=== PATIENT | female | born 1935 | race Caucasian/White ===

== ENCOUNTER 2017-02-23 12:52 | Inpatient (IN) | payer MEDICARE ==
[~2017-02-23] VITALS: Ht 167.6 cm; Wt 91.9 kg
--- OUTSIDE RECORDS SUMMARY | 2017-02-23 12:54 | External Medical Summary Rpt ---
Author Author JEANIE Sands, [employer] Organization [employer] Address Unknown Phone Unavailable Payers Section Payer Plan Name Group ID Member ID Coverage Coverage Start End Date Date MEDICARE MCARE [id number] No No A AND B A informati informati on in on in source source data data
--- OUTSIDE RECORDS SUMMARY | 2017-02-23 12:54 | External Medical Summary Rpt ---
Author Author JEANIE Address Unknown Phone [email or web address] Purpose Continuity of Care Document - through 2016
--- OUTSIDE RECORDS SUMMARY | 2017-02-23 12:54 | External Medical Summary Rpt ---
Author Author [employer] Organization [employer] Address Unknown Phone Unavailable Purpose Continuity of Care Document - through 2016
--- OUTSIDE RECORDS SUMMARY | 2017-02-23 12:54 | External Medical Summary Rpt ---
Author Author JEANIE Sands, [employer] Organization [employer] Address Unknown Phone Unavailable Payers Section Payer Plan Name Group ID Member ID Coverage Coverage Start End Date Date MEDICARE MCARE [id number] No No A AND B A informati informati on in on in source source data data
--- OUTSIDE RECORDS SUMMARY | 2017-02-23 12:54 | External Medical Summary Rpt ---
Demographics Preferred Language Romansh Marital Status Unknown Hindu Affiliation Unknown Race Unknown Ethnic Group Unknown Author Author , JEANIE WARE Address Unknown Phone Immunization Unable to retrieve immunization data due to connection failure with Immunization Registry. Please try again later.
--- OUTSIDE RECORDS SUMMARY | 2017-02-23 12:54 | External Medical Summary Rpt ---
Author Author JEANIE Address Unknown Phone Purpose Continuity of Care Document - through 2016
--- OUTSIDE RECORDS SUMMARY | 2017-02-23 12:54 | External Medical Summary Rpt ---
Demographics Preferred Language Sami Marital Status Unknown Nondenominational Affiliation Unknown Race Unknown Ethnic Group Unknown Author Author , JEANIE WARE Address Unknown Phone Immunization Unable to retrieve immunization data due to connection failure with Immunization Registry. Please try again later.
[2017-02-23 13:58] VITALS: BP 120/73
[2017-02-23 14:27] VITALS: BP 120/73
[2017-02-23] MEDS ORDERED: RALOXIFENE HCL60 MG PO (15:19)
[2017-02-23] MEDS ORDERED: CARVEDILOL 25MG25 MG PO (15:20)
[2017-02-23] MEDS ORDERED: MAXZIDE 50 MG-71 TAB OR (15:21)
[2017-02-23] MEDS ORDERED: LISINOPRIL40 MG PO (15:21)
[2017-02-23] MEDS ORDERED: ASPIRIN 81MG TA81 MG PO (15:22)
[2017-02-23] MEDS ORDERED: LIPITOR40 MG PO (15:22)
[2017-02-23] MEDS ORDERED: MIRALAX17 GM/PACK PO (15:23)
[2017-02-23] MEDS ORDERED: CENTRUM SILVER1 EACH PO (15:23)
[2017-02-23] MEDS ORDERED: EXTRA STRENGTH500 MG PO (15:25)
--- NOTE | 2017-02-23 15:32 | RADIOLOGY REPORT PS360 ---
CHEST(2 VIEWS-NOT PORTABLE) Ordering Physician: Tom Aldridge MD Patient Age: 81 years: Female HISTORY: admit left leg cellulitis. Infection. TECHNIQUE: PA and lateral chest FINDINGS no previous chest studies available for comparison The lungs well expanded and clear with nothing definitely acute. Slight coarsening of markings toward lung bases most likely reflects chronic changes most evident here at the right lung base and medial left lung base. Upper lung lofton are clear and unremarkable. Heart is normal size with glenn and mediastinal structures unremarkable. Previous ORIF left humerus. No pleural effusion. Mild degenerative changes spine. IMPRESSION: Nothing definitely acute. Mild chronic changes most likely account for the slight coarsening of markings right base & the medial left base.
--- NOTE | 2017-02-23 15:53 | CONSULT NOTE ---
Pharmacokinetic Consult Date of consult: 02/23/17 Time of consult: 1551 Referring provider: DR. PEREZ Reason for consult: VANCOMYCIN DOSING Allergies: Coded Allergies: No Known Allergies (02/23/17) Home Medications: Reported Medications RALOXIFENE HCL (Raloxifene HCl) 60 MG PO DAILY Carvedilol (Carvedilol 25MG) 25 MG PO BID Lisinopril (Lisinopril 40MG) 40 MG PO DAILY TRIAMTERENE/HYDROCHLOROTHIAZID (Triamterene-Hctz 75-50 MG Tab) 1 EACH OR DAILY ASPIRIN (Aspirin) 81 MG PO DAILY Atorvastatin Calcium (Atorvastatin) 40 MG PO DAILY Multivit-Min/FA/Lycopene/Lut (Centrum Silver Tablet) 1 EACH PO DAILY Polyethylene Glycol 3350 (Miralax) 17 GM PO QHS Acetaminophen (Extra Strength Non-Aspirin) 1,000 MG PO BIDPRN Height (feet): 5 Height (inches): 6.00 Medical History: CAD? No Angina: No AL: No Hypertension? Yes Hyperlipidemia? Yes CHF? No DVT? No PE? No COPD? No Asthma? Yes Anemia? No GERD? No Gastric ulcers? No GI Bleed? No Hernia? No Thyroid Problems? No Hypothyroidism? No CVA? No Seizures? No Diabetes? No Renal Insuffiency? No UTI? Yes Stones? No GB Disease: No Nephritic Syndrome? No Asplenia? No Hepatitis? No Sickle Cell Disease? No Arthritis? No Migraines? No Cataracts? Yes Glaucoma? No MRSA? No HIV? No TB? No Anxiety? No Depression? No Cancer? No More? No Labs: Laboratory Tests 02/23/17 1423: Sodium 133 L, Potassium 3.8, Chloride 98, Carbon Dioxide 26, BUN 25 H, Creatinine 1.7 H, Estimated Creat Clear 36 L, Estimated GFR (MDRD) 29 L, Glucose 111 H, Calcium 9.2, Total Bilirubin 0.3, AST 14 L, ALT 26, Alkaline Phosphatase 47, Total Protein 6.5, Albumin 3.0 L, Globulin 3.5 H, Albumin/ Globulin Ratio 0.9 L Problem List: 1. Cellulitis Plan: BASED ON PATIENT FACTORS, RECOMMEND VANCOMYCIN 1750 MG IV Q36H. PHARMACY WILL FOLLOW DAILY AND ADJUST APPROPRIATE. at 1550
[2017-02-23 16:14] VITALS: BP 125/63
--- NOTE | 2017-02-23 17:09 | RADIOLOGY REPORT PS360 ---
LOWER LEG-LT Ordering Physician: Tom Aldridge MD Patient Age: 81 years: Female HISTORY: cellulitis of lower leg/ankle TECHNIQUE: 2 views left lower leg FINDINGS . The tibia and fibula appear intact. No fracture.. Bones well mineralized. This lower leg study includes 2 views of the left knee and left ankle. Left knee image demonstrates mild degenerative changes with mild narrowing of the medial compartment.. Left ankle demonstrates mild degenerative changes most evident at medial malleolus. Diffuse subcutaneous edema is seen throughout the lower leg. But becoming most pronounced inferiorly at the level ankle. Swelling is most pronounced surrounding the ankle, & most pronounced overlying medial malleolus more so than lateral malleolus. There is also subcutaneous edema seen superior to the knee but is slightly less pronounced superiorly IMPRESSION: The tibia and fibula appear intact. Early degenerative changes at the knee and medial ankle noted Most striking in this patient is diffuse edema throughout the subcutaneous fat. Soft tissue edema and swelling most evident about the ankle, & particularly evident overlying the medial malleolus.
[2017-02-23 19:33] VITALS: BP 128/69
[2017-02-23 21:21] VITALS: BP 128/69
--- NOTE | 2017-02-23 23:42 | RADIOLOGY REPORT PS360 ---
ANKLE-LT-3 VIEWS Ordering Physician: Tom Aldridge MD Patient Age: 81 years: Female HISTORY: cellulitis of lower leg/ankle TECHNIQUE: 3 views left ankle FINDINGS Soft tissue swelling is seen throughout the lower leg with edematous changes throughout the subcutaneous fat of the lower leg above the ankle and becoming most pronounced at the ankle. The soft tissue swelling most evident overlying the medial malleolus more so the lateral malleolus. There is slight roughening of the osseous elements at the tip of the of the medial malleolus but this likely reflects old trauma and mild degenerative change medial ankle joint.. No acute actually findings and the plafond and ankle mortise mortise is well-maintained. There is moderate spurring at insertion of Achilles tendon as well as a modest plantar calcaneal spur incidentally noted. No radiopaque foreign bodies evident \ IMPRESSION: No fracture. No acute osseous findings left ankle. Soft tissue swelling throughout lower leg most evident about ankle, overlying the medial malleolus. . Slight roughening at the medial malleolus may reflect old old injury and degenerative changes.
[2017-02-24 04:13] VITALS: BP 134/78
[2017-02-24 06:33] LABS: LYMPH # 1.3 K/mm3 (0.7-4.5); LYMPH % 21.8 % (10-50.0)
[2017-02-24 06:46] LABS: HEMOGLOBIN 10.8 g/dL (12.2-16.2)
[2017-02-24 07:47] VITALS: BP 120/54
--- NOTE | 2017-02-24 08:18 | ACUTE CARE PROGRESS NOTE (QUA) ---
Progress Notes Subjective Date 02/24/17 Time 0745 Note Patient reports left leg pain has improved. She states LLE lesion has been present for over a year. Lesion heals and then reopens 3-4 times per year. She has not had a biopsy of the lesion in the past. Alert and oriented x3. Rate and rhythm regular. Pulses 1+. Lung sounds clear and equal. LLE cellulitis has improved, continues to have erythema extending to mid roque, + warmth. 1-2 + BLE with left > right Patient/family reports: feeling better Nursing reports: no complaints Objective Findings Last VS-Temp:98.4 B/P:120/54 Pulse:70 Resp:20 SaO2:94 ROOM AIR Last weight lbs:202 oz:8 K.854 Method:Bed Scales Assessment/Plan Problem List 1. Cellulitis Assessment/Plan: X-ray negative for osteomyelitis. Continue vancomycin and clindamycin infusions. Consult surgery for biopsy of LLE lesion. 2. Non-healing skin lesion Assessment/Plan: Consult surgery to biopsy LLE lesion. Patient condition Improving Plan: continue current care This inpt stay is expected to cross 2 MNs from start of care Yes at 0818
--- NOTE | 2017-02-24 08:47 | PHARMACY CLINIC NOTE ---
Patient Demographics Patient Demographics Admission date: 02/23/17 Date: 02/24/17 Time: 0847 Allergies Coded Allergies: No Known Allergies (02/23/17) HEIGHT- FT: 5 IN: 6.00 K.854 VTE General Information Labs: Laboratory Tests 02/24 0550 Hematology Hgb (12.2 - 16.2 g/dL) 10.8 L Hct (37.0 - 47.0 %) 31.9 L Plt Count (142 - 424 K/mm3) 201 Disclaimer The following section includes nursing documentation that has been pulled in for pharmacy review. Patient's VTE score: 1 Patient's VTE Risk: VERY LOW RISK Clinical trial participant? No VTE prophylaxis [facility] 0371 VTE prophylaxis ordered? Yes Type of prophylaxis/treatment: AMADA at 0847
--- NOTE | 2017-02-24 08:47 | PHARMACY CLINIC NOTE ---
Patient Demographics Patient Demographics Admission date: 02/23/17 Date: 02/24/17 Time: 0847 Allergies Coded Allergies: No Known Allergies (02/23/17) HEIGHT- FT: 5 IN: 6.00 K.854 VTE General Information Labs: Laboratory Tests 02/24 0550 Hematology Hgb (12.2 - 16.2 g/dL) 10.8 L Hct (37.0 - 47.0 %) 31.9 L Plt Count (142 - 424 K/mm3) 201 Disclaimer The following section includes nursing documentation that has been pulled in for pharmacy review. Patient's VTE score: 1 Patient's VTE Risk: VERY LOW RISK Clinical trial participant? No VTE prophylaxis [facility] 0371 VTE prophylaxis ordered? Yes Type of prophylaxis/treatment: AMADA at 0847
[2017-02-24 09:14] VITALS: BP 120/54
--- NOTE | 2017-02-24 12:26 | CONSULT NOTE ---
Standard Demographics Patient Demo Date of Consultation: 02/24/17 Referring Provider: Tom Aldridge MD Reason for Consultation: possible biopsy of LEFT lower extremity lesion PRIMARY DIAGNOSIS: LEFT LEG CULLULITIS Allergies: Coded Allergies: No Known Allergies (02/23/17) History of Present Illness Chief Complaint: Swelling and redness and LEFT lower extremity History of Present Illness: Patient is an 81-year-old white female who was admitted with a 2 week history of apparent refractory cellulitis of the LEFT lower extremity. About 14 days ago patient initially developed some swelling and redness of her LEFT foot up to the mid calf and was seen in an outpatient facility emergency department where she was diagnosed with cellulitis and given oral antibiotics. Her symptoms slightly improved but she had traveled by vehicle with her family to [place] and then recently returned with worsening symptoms. She was admitted for inpatient management. Patient also has a lesion on her LEFT pretibial area some distance from the site of presumed cellulitis. She states that this area has been present for 30-35 years. She states that it started as a "razor burn". It has slowly enlarged over time. She attributes some of the nonhealing nature to the fact that her AMADA hose rubs this area. It occasionally bleeds about 3 or 4 times a year. Past Medical History Reports: hypertension, renal insufficiency, CVA. Surgical History Previous Surgery?Y CATARACTS Allergies Coded Allergies: No Known Allergies (02/23/17) Medications: Reported Medications RALOXIFENE HCL (Raloxifene HCl) 60 MG PO DAILY Carvedilol (Carvedilol 25MG) 25 MG PO BID Lisinopril (Lisinopril 40MG) 40 MG PO DAILY TRIAMTERENE/HYDROCHLOROTHIAZID (Triamterene-Hctz 75-50 MG Tab) 1 EACH OR DAILY ASPIRIN (Aspirin) 81 MG PO DAILY Atorvastatin Calcium (Atorvastatin) 40 MG PO DAILY Multivit-Min/FA/Lycopene/Lut (Centrum Silver Tablet) 1 EACH PO DAILY Polyethylene Glycol 3350 (Miralax) 17 GM PO QHS Acetaminophen (Extra Strength Non-Aspirin) 1,000 MG PO BIDPRN Smoking Hx Tobacco: No Smoker: Never Smoker Type: N/A Packs/day: N/A Are you/the child exposed to second-hand smoke: No Alcohol Alcohol: No Hx of Drug Use Drug Use? No Review of Systems Constitutional No: chills. Skin Positive for: swelling. Immune/allergy No: anaphalaxis. Eyes No: vision loss. Respiratory No: shortness of air. Cardiovascular No: chest pain. GI No: abdomen. (female) No: hematuria. Musculoskeletal Positive for: extremity swelling. Heme No: bleeding. Physical Exam Exam General appearance no acute distress, alert Respiratory decreased breath sounds Cardiovascular normal heart sounds Findings/Data On examination of her LEFT lower extremity she has some pitting edema of the foot and distal calf area. There is some erythema and warmth. No lesions in this location. In the pretibial location below her knee there is an ulcerated irregular lesion measuring about 3 cm. There is some minor surrounding skin pigmentation. Plan Plan: This pretibial lesion could be potentially a squamous cell carcinoma versus other skin malignancy. I do feel that a biopsy would be warranted but would not perform this urgently as an inpatient while she is being treated for acute symptomatology of her LEFT distal lower extremity and foot. Consideration may be given for punch biopsy under local anesthesia once the presumed cellulitis is treated. I will order a d-dimer although DVT as underlying pathology for the LEFT lower extremity redness and swelling is unlikely. at 7146
[2017-02-24 15:31] VITALS: BP 116/55
[2017-02-24 20:00] VITALS: BP 143/69
[2017-02-24 20:40] VITALS: BP 143/69
[2017-02-25 04:40] VITALS: BP 123/69
[2017-02-25 05:04] LABS: HEMOGLOBIN 11.3 g/dL (12.2-16.2); LYMPH # 1.5 K/mm3 (0.7-4.5); LYMPH % 27.6 % (10-50.0)
[2017-02-25] MEDS ORDERED: MUPIROCIN 2% O1 INC1 TP (07:46)
[2017-02-25] MEDS ORDERED: OMNICEF 300 MG300 MG PO (07:46)
[2017-02-25] MEDS ORDERED: CLINDAMYCIN HC300 MG PO (07:47)
--- NOTE | 2017-02-25 07:49 | DISCHARGE SUMMARY STANDARD ---
Demographics Admit date: 02/23/17 Discharge date: 02/25/17 History of present illness History of present illness 81-year-old white female who acquired cellulitis of the left lower extremity while on vacation, treated with 2 rounds of sulfa-based antibiotics and clindamycin, but improved transiently with an IV dose of vancomycin and clindamycin at an outpatient setting in [place]. Came to see me in my office because of increased swelling and pain. Found to have cellulitis that had not responded well with some edema and was in the hospital for further treatment. Please see scanned H&P in the chart. Hospital Course Hospital Course: Patient was admitted, received daily physical exam note. Placed on vancomycin and clindamycin. Tolerated this very nicely. Improved and had no further fevers. Blood cultures were negative. Imaging studies of ankle and leg showed no evidence of bony abnormality but lots of edema underneath the subcutaneous area. This morning she is doing better, has improving issues with swelling. Less redness. Plan will be to have PT evaluate her for possible compression therapy for lymphedema issues, we will discharge her on continued clindamycin therapy with the addition of a third generation cephalosporin. Comparison will be added, close follow up in my office. Discharge diagnoses Problem List 1. Cellulitis 2. Non-healing skin lesion Medications Medications: Discharge meds are as noted. Follow up Follow up in office in: 6 DAYS with: Tom Aldridge MD at 0701
[2017-02-25 08:00] VITALS: BP 106/50
--- NOTE | 2017-02-25 08:27 | CARDIOVASCULAR REPORT ---
"Venous Exam Indications: 729.81 Swelling of limb. IMPRESSIONS 1. There is no evidence of significant Reflux. 2. No evidence of deep or superficial vein thrombosis involving the left lower extremity History: Redness of theleft lower extremity. Left lower extremity venous duplex evaluation. Doppler flow study including spectral analysis, color and andre scale imaging. Location: Bedside. Patient status: Inpatient. Tables: Venous flow and imaging: + +-------+ + |Location |Overall|Flow properties | + +-------+ + |Left common femoral |Patent |Normal phasicity; spontaneous; | | | |normal augmentation; compressible | + +-------+ + |Left saphenofemoral junction|Patent |Compressible | + +-------+ + |Left profunda femoral |Patent |Compressible | + +-------+ + |Left femoral |Patent |Normal phasicity; spontaneous; | | | |normal augmentation; compressible | + +-------+ + |Left greater saphenous |Patent |Normal phasicity; spontaneous; | | | |normal augmentation; compressible | + +-------+ + |Left popliteal |Patent |Normal phasicity; spontaneous; | | | |normal augmentation; compressible | + +-------+ + |Left posterior tibial |Patent |Compressible | + +-------+ + |Left peroneal |Patent |Compressible | + +-------+ + |Left gastrocnemius |Patent |Compressible | + +-------+ + |Left soleal |Patent |Compressible | + +-------+ + (Report amended ) Electronically signed by: Deep Messer [id number]"
[2017-02-25 09:29] VITALS: BP 106/50
[2017-02-25 09:37] VITALS: BP 106/50
== END 2017-02-25 13:43 | disposition home or self-care (01) | DRG 603 ==
LOC: 2ND 12:52
PROVIDERS: Internal Medicine Adolescent Medicine
DX: L03.116 Cellulitis of left lower limb (principal); I10 Essential (primary) hypertension; Z72.0 Tobacco use; L98.9 Disorder of the skin and subcutaneous tissue, unspecified
CPT/HCPCS: J3370

== ENCOUNTER → 2017-03-31 | Day surgery (SDC) | payer MEDICARE ==
[~2017-03-31] MED LIST: ASPIRIN 81MG TA81 MG PO; CARVEDILOL 25MG25 MG PO; CENTRUM SILVER1 EACH PO; CLINDAMYCIN HC300 MG PO; EXTRA STRENGTH500 MG PO; LIPITOR40 MG PO; LISINOPRIL40 MG PO; MAXZIDE 50 MG-71 TAB OR; MIRALAX17 GM/PACK PO; MUPIROCIN 2% O1 INC1 TP; OMNICEF 300 MG300 MG PO; RALOXIFENE HCL60 MG PO
== END ==
LOC: SDC 10:46
DX: Z53.9 Procedure and treatment not carried out, unspecified reason (principal)

== ENCOUNTER 2017-04-08 07:49 | Day surgery (SDC) | payer MEDICARE ==
--- NOTE | 2017-04-08 09:22 | Operative Note ---
Surgeon/Diagnoses Surgeon/Yarn Bleaching Machine Operator(s) Date of procedure: 04/08/17 Surgeon: Sylvain Anthony Diagnoses Pre-op diagnosis: Nonhealing skin lesion LEFT lower extremity Post-op diagnosis Same Procedure Procedure Procedure: 4 mm punch biopsy of skin lesion LEFT lower extremity Indications: JAI SPEAR is a 82 year-old Female with a history of nonhealing but enlarging lesion on the LEFT pretibial region. She states that the area has actually been present for many years. I have been consult when she was admitted to the hospital with LEFT lower extremity cellulitis for possible biopsy. Plan was made to have her undergo treatment and resolution of the cellulitis and then consider punch biopsy. Findings: Ulcerated irregular scabbed over lesion Procedure Description: Consent was obtained. Patient was taken to the procedure room. The area was prepped and draped. Local anesthetic was infiltrated consisting of several cc of 1 percent Xylocaine with epinephrine. 4 mm punch biopsy was performed taking full-thickness scan. Specimen was sent off for histopathologic analysis. Pressure was held. There is good hemostasis. Triple anabolic ointment and clean dry sterile dressing was applied. EBL (ml): 3 Anesthesia: LOCAL Disposition Disposition: Discharged home at 0921
[2017-04-08 09:57] VITALS: BP 129/67
== END 2017-04-08 09:20 | disposition home or self-care (01) ==
LOC: SDC 07:49
PROVIDERS: Surgery
PROC: 0HBLXZX Excision of Left Lower Leg Skin, External Approach, Diagnostic (ICD-10-PCS; principal; 2017-04-08 08:30)
DX: D48.5 Neoplasm of uncertain behavior of skin (principal)

== ENCOUNTER → 2017-05-05 | Outpatient (CLI) | payer MEDICARE ==
[2017-05-05 09:29] LABS: LYMPH # 1.5 K/mm3 (0.7-4.5); LYMPH % 31.9 % (10-50.0)
[2017-05-05 09:38] LABS: HEMOGLOBIN 13.2 g/dL (12.2-16.2)
[2017-05-05 09:53] LABS: BUN 22 mg/dL (7-18)
[2017-05-05 10:15] LABS: GFR (ESTIMATED) 47 ML/MIN (59-)
== END ==
LOC: LAB 08:50
PROVIDERS: Surgery
DX: L03.116 Cellulitis of left lower limb (principal); R60.9 Edema, unspecified

== ENCOUNTER 2017-05-13 06:10 | Day surgery (SDC) | payer MEDICARE ==
[~2017-05-13] VITALS: Ht 167.6 cm; Wt 85.7 kg
--- NOTE | 2017-05-13 11:05 | Anesthesia Record ---
Anesthesia Record Part I Total IV fluids: 1200 EBL (ml): 15 Urine Output: 0 B/P: 133/79 % SaO2: 95 Pulse: 70 Resps: 16 Temp: 97.8 Patient is: Drowsy, Stable Stable to PACU at: 1100 at 1104
--- NOTE | 2017-05-13 11:05 | Anesthesia Record ---
Anesthesia Record Part II Discharge time: 1130 Destination: Same day surgery PACU nurse assessment review? Yes Patient is: Stable Anesthesia complications? No at 1104
--- NOTE | 2017-05-13 11:11 | Operative Note ---
Surgeon/Diagnoses Surgeon/Community Development Technician(s) Date of procedure: 05/13/17 Surgeon: Sylvain Anthony Diagnoses Pre-op diagnosis: Skin cancer LEFT lower extremity Post-op diagnosis Same Procedure Procedure Procedure: Excision of skin cancer from LEFT lower extremity (excisional diameter approximately 4.5 cm) coverage with split-thickness skin graft Indications: JAI SPEAR is a 82 year-old Female. She is an 82-year-old white female whom I had seen her in the hospital as an inpatient several weeks ago. At that time she had been hospitalized for LEFT lower extremity cellulitis. I was asked to perform a biopsy of a nonhealing skin lesion on the LEFT pretibial region. Patient states that this has been present for about 35 years. It started out small. She states that it began as a "razor burn". Over the past several years and has increased in size. It is nontender. I performed Punch biopsy last week under local anesthesia. This revealed squamous cell carcinoma in situ. Plan was made for excision with grossly negative margins. Given the size and location of the lesion this would require coverage with skin graft. Plan was made for coverage with split-thickness skin graft. Findings: Consistent with ulcerated skin cancer Procedure Description: Consent was obtained and patient was taken to the operating room. She was placed in a supine position. Gen. anesthesia was induced. LEFT lower extremity was prepped and draped in the standard surgical fashion. Attention was first turned to excision of the skin cancer. This was marked with a skin marker for planned grossly negative margins up to about 5 mm. Circular incision was made in the skin was dissected free from the underlying subcutaneous tissues with sharp dissection. Hemostasis was achieved with limited use of electrocautery. Overall size of the excision measured about 4.5 cm. Attention was then turned to harvesting of the split-thickness skin graft. Dermatome was used for this procedure. The blade depth was adjusted to approximately 0.3 mm. With was adjusted. LEFT anterior lateral thigh which was prepped previously had mineral oil and applied. This was then removed. Split-thickness skin graft was harvested. This was meshed in a 1:1.5 manner. Meshed split thickness skin graft was then placed on the wound and excess skin graft was excised. It was sutured in place with 4-0 chromic. Bolster dressing was applied using triple antibiotic ointment, and Xeroform with moistened 4 x 4 gauze. This was sewn in place using 2-0 nylon sutures. The harvest site was then covered with Tegaderm after application of Mastisol at the edges. Clean dry sterile dressing was applied. EBL (ml): 15 Anesthesia: Gen. Specimens: Skin cancer from LEFT lower extremity Disposition Disposition: To PACU at 1111
[2017-05-13 15:08] VITALS: BP 112/74
== END 2017-05-13 12:25 | disposition home or self-care (01) ==
LOC: SDC 06:10
PROVIDERS: Surgery
PROC: 0HRJX74 Replacement of Left Upper Leg Skin with Autologous Tissue Substitute, Partial Thickness, External Approach (ICD-10-PCS; principal; 2017-05-13 07:30)
DX: C44.729 Squamous cell carcinoma of skin of left lower limb, including hip (principal)
CPT/HCPCS: J2405

== ENCOUNTER → 2017-06-12 | Outpatient (CLI) | payer MEDICARE ==
[2017-06-12 14:13] LABS: BUN 26 mg/dL (7-18)
[2017-06-12 14:14] LABS: GFR (ESTIMATED) 47 ML/MIN (59-)
== END ==
LOC: CARL-LAB 08:30
PROVIDERS: Internal Medicine Adolescent Medicine
DX: I10 Essential (primary) hypertension (principal)